=== PATIENT | male | born 1960 | race Caucasian/White ===

== ENCOUNTER 2022-04-17 20:31 | Emergency (ER) | payer OTHER ==
[2022-04-17] MEDS ORDERED: Sodium Chloride 0.9% 10 ML Syringe FLUSH PRN (21:17)
[2022-04-17] MEDS ORDERED: Ketorolac 30 MG/ML SDV IVPUSH ONE (21:18)
[2022-04-17] MEDS ORDERED: Diphtheria,Pertussis(Acell),Tetanus Vaccine 0.5 ML Syringe IM ONE (23:32)
== END 2022-04-17 23:43 | disposition home or self-care (01) ==
LOC: JP.ED 20:31
DX: S61.032A Puncture wound without foreign body of left thumb without damage to nail, initial encounter (principal); M65.842 Other synovitis and tenosynovitis, left hand; W26.8XXA Contact with other sharp object(s), not elsewhere classified, initial encounter
CPT/HCPCS: 36415; 73140; 80048; 85025; 86140; 96365; 96375; 99283; J1885; J3370; J7050; 99281